=== PATIENT | female | born 1955 | race African-American/Black ===

== ENCOUNTER 2022-01-31 00:09 | Emergency (ER) | payer MEDICARE, MEDICAID ==
[~2022-01-31] VITALS: Ht 160 cm; Wt 95.5 kg
[2022-01-31] MEDS ORDERED: TETANUS, DIPHTHERIA, PERTUSSIS VAC/PF 0.5ML (>10YR OLD) IM ONE (01:45)
[2022-01-31] MEDS ORDERED: IBUPROFEN 400MG TABLET PO ONE (01:45)
[2022-01-31] MEDS ORDERED: AMOX-424 MT (03:09)
[2022-01-31 03:35] VITALS: BP 175/92
== END 2022-01-31 03:37 | disposition home or self-care (01) ==
LOC: ER 00:09
DX: S81.852A Open bite, left lower leg, initial encounter (principal); R03.0 Elevated blood-pressure reading, without diagnosis of hypertension; W54.0XXA Bitten by dog, initial encounter; Y93.89 Activity, other specified; Y92.830 Public park as the place of occurrence of the external cause
CPT/HCPCS: 73590; 90471; 90715; 99283